=== PATIENT | male | born 2000 | race African-American/Black ===

== ENCOUNTER 2019-07-22 01:56 | Emergency (ER) | payer BC ==
[~2019-07-22] VITALS: Ht 188 cm; Wt 86.2 kg
[2019-07-22] MEDS ORDERED: OMEPRAZOLE 20 M20 M1 PO (02:05)
[2019-07-22] MEDS ORDERED: BREO ELLIPTA 11 EACH INH (02:05)
[2019-07-22] MEDS ORDERED: CLARITIN10 M3 PO (02:05)
[2019-07-22 02:32] LABS: ABSOLUTE NEUTROPHILS 2.6 thou/uL (1.4-8.2); BASOPHILS 0.3 % (0.0-2.0); EOSINOPHILS 1.1 % (0.0-3.0); HEMATOCRIT 41.7 % (42.0-52.0); HEMOGLOBIN 13.8 gm/dL (14.0-18.0); LYMPHOCYTES 33.8 % (24.0-44.0); MCH 28.1 pg (26.0-34.0); MCV 85.2 fL (80.0-100.0); MONOCYTES 8.1 % (1.0-8.0); PLATELET COUNT 282 thou/uL (150-400); POLYS 56.7 % (36.0-66.0); RDW 13.5 % (10.5-14.5); WBC 4.7 thou/uL (4.0-11.0)
[2019-07-22 02:40] LABS: CALCIUM 9.5 mg/dL (8.5-10.1); POTASSIUM 3.4 mmol/L (3.5-5.1)
[2019-07-22 02:46] LABS: ALBUMIN 4.2 g/dL (3.4-5.0); TOTAL BILIRUBIN 0.6 mg/dL (<0.1-1.0); TOTAL PROTEIN 7.5 g/dL (6.4-8.2)
[2019-07-22 03:04] VITALS: BP 136/85
--- NOTE | 2019-07-22 08:08 | EKG ---
[facility] [place] [address] ELECTROCARDIOGRAM REPORT Name: ANJEL RAM [id number] Admission: 07/22/19 Attend Phys: Discharge: 07/22/19 Date of : [birth year] Report #: [id number] THIS REPORT FOR: cc: [facility] - Clinic physician unknown [facility] - Clinic physician unknown Go Rivas MD ~ THIS REPORT FOR: //name// [facility] ED Test Date: 2019-07-22 Test Time: 02:50:14 Pat Name: ANJEL RAM Department: Room: Gender: [employer]: [facility] : 2000 Requested By: Brendan Hinton Order Number: [id number] MD: Go Rivas Measurements Intervals [place] Rate: 60 P: -45 VT: 182 QRS: 51 QRSD: 92 T: 17 QT: 382 QTc: 382 Interpretive Statements Sinus or ectopic atrial rhythm LVH by voltage ST elevation likely early repolarization No previous ECG available for comparison Electronically Signed On 07-22-2019 8:06:32 CDT by Go Rivas [email or web address] <ELECTRONICALLY SIGNED> By: Go Rivas MD 07/22/19 0806 9 9 Go Rivas MD /PRINCESS
== END 2019-07-22 03:42 | disposition home or self-care (01) ==
LOC: ER 01:56
PROVIDERS: Emergency Medicine
DX: R10.13 Epigastric pain (principal); R10.11 Right upper quadrant pain; J45.909 Unspecified asthma, uncomplicated; Z79.899 Other long term (current) drug therapy